=== PATIENT | male | born 1955 | race Caucasian/White ===

== ENCOUNTER 2017-11-25 10:43 | Day surgery (SDC) | payer MEDICAID ==
[~2017-11-25] VITALS: Ht 170.2 cm; Wt 127.0 kg
[~2017-11-25 10:43] MED LIST: ALEN70TA2 PO; ASPI81CH43 PO; CANA100T PO; FENO35TA2 PO; FERR1TAB5 PO; HYDR-4795 PO; LEVO25TA6 PO; LISI40TA PO; METF-370 PO; MONT10TA34 PO; OMEP20TA PO; PAR20T PO; SIMV-8 PO; SITA100T7 PO
[2017-11-25] MEDS ORDERED: VERAPAMIL 2.5MG/ML INJ 2ML VIAL IV ONE (11:14)
[2017-11-25] MEDS ORDERED: ANGIOMAX 250 MG VIAL IV ONE (11:14)
[2017-11-25] MEDS ORDERED: SODIUM CHL 0.9% 0 ML ONE (11:15)
[2017-11-25] MEDS ORDERED: fentaNYL CITRATE 100 MCG/2 ML VL ONE ×2 (11:15→11:52)
[2017-11-25] MEDS ORDERED: MIDAZOLAM HCL 1MG/1ML-2 ML VIAL ONE ×2 (11:15→11:52)
[2017-11-25] MEDS ORDERED: SODIUM CHL 0.9% 50 ML ONE (11:15)
[2017-11-25] MEDS ORDERED: IODIXANOL 320MG/ML 100ML BTL IV ONE (11:25)
[2017-11-25] MEDS ORDERED: LIDOCAINE 2% (LOCAL ANESTH.) PF 5ml SDV ONE (11:25)
[2017-11-25] MEDS ORDERED: HEPARIN SODIUM (PORCINE) 5000 UNITS/ML 1ML VIAL ONE (12:00)
== END 2017-11-25 14:00 | disposition home or self-care (01) ==
LOC: CATH 10:43
PROVIDERS: ATTEND Internal Medicine
DX: I99.8 Other disorder of circulatory system (principal); R94.39 Abnormal result of other cardiovascular function study; I10 Essential (primary) hypertension; E78.5 Hyperlipidemia, unspecified; Z87.891 Personal history of nicotine dependence; E11.9 Type 2 diabetes mellitus without complications; Z79.82 Long term (current) use of aspirin; Z79.899 Other long term (current) drug therapy; Z96.651 Presence of right artificial knee joint
CPT/HCPCS: 93458; 99152; C1769; C1887; C1894; J1644; J3010; J7030; A6257; J2001; J2250; Q9967

== ENCOUNTER 2019-05-08 04:48 | Inpatient (IN) | payer MEDICAID, OTHER ==
[~2019-05-08] VITALS: Ht 170.2 cm; Wt 129.3 kg
[~2019-05-08 04:48] MED LIST changes: -FERR1TAB5 PO; +FERR45TA7 PO
[2019-05-08] MEDS ORDERED: ASPirin 81 mg TAB PO ONE (07:00)
[2019-05-08 08:04] LABS: Basophils # (auto) 0 uL; Eosinophils # (auto) 0.1 uL; Nucleated Red Blood Cells % 0.1 %; Red Blood Cells 6.66 10^6/uL (4.5-5.90)
[2019-05-08 08:11] LABS: Basophils % (auto) 0.7 % (0.0-2.0); Eosinophils % (auto) 0.8 % (0.0-7.0); Hematocrit 47.9 % (41.0-53.0); Hemoglobin 15.2 g/dL (13.5-17.5); Lymphocytes # (auto) 1.3 uL; Lymphocytes % (auto) 18.3 % (10.0-50.0); Mean Corpuscular Hemoglobin 22.8 pg (28.0-32.0); Mean Corpuscular Hgb Conc. 31.7 g/dL (32.0-36.0); Mean Corpuscular Volume 71.9 fL (80.0-100.0); Monocytes # (auto) 0.6 uL; Monocytes % (auto) 7.9 % (0.0-12.0); Neutrophils % (auto) 72.3 % (37.0-80.0); Platelet Count (auto) 225 10^3/uL (140-450); Red Cell Distribution Width 17.4 % (11.8-14.3)
[2019-05-08 08:19] LABS: Albumin 4.2 g/dL (3.4-5.0); Anion Gap 5 (5-15); Blood Urea Nitrogen 17 mg/dL (7-18); Calcium 9.1 mg/dL (8.5-10.1); Carbon Dioxide 25 mmol/L (21-32); Chloride 103 mmol/L (98-107); Glucose 121 mg/dL (74-106); Magnesium 2.1 mg/dL (1.6-2.6); Sodium 133 mmol/L (136-145)
[2019-05-08 08:23] LABS: Alanine Aminotransferase 34 U/L (16-61); Aspartate Aminotransferase 23 U/L (15-37); BUN/Creatinine Ratio 17.7; GFR African American 102 mL/min; GFR Non-African American 84 mL/min
[2019-05-08 08:32] LABS: Alkaline Phosphatase 50 U/L (45-117); Bilirubin, Total 0.9 mg/dL (0.2-1.0); Total Protein 8.3 g/dL (6.4-8.2)
[2019-05-08 08:38] LABS: INR 1.01 (0.9-1.15)
[2019-05-08] MEDS ORDERED: DEXTROSE (50%) 50ML SYRG IV PRN (11:15)
[2019-05-08] MEDS ORDERED: MORPHINE SULF INJ 2 MG/ML SYRINGE 1ML IV PRN ×2 (11:15→11:30)
[2019-05-08] MEDS ORDERED: NITROGLYCERIN 0.4 MG SL TAB SL PRN (11:15)
[2019-05-08] MEDS ORDERED: HYDROcodone-ACET 10/325MG TAB PO PRN (11:30)
[2019-05-08] MEDS ORDERED: ONDANSETRON HCL 4 MG/2 ML VIAL IV PRN (11:30)
[2019-05-08] MEDS: InsuLIN REG 1unit/0.01ml Soln (100units/ml) SC SCH ×2 (11:30→16:57)
[2019-05-08] MEDS ORDERED: ACETAMINOPHEN 325 MG TAB PO PRN (11:30)
[2019-05-08] MEDS: ACCU-CHEK COMFORT CURVE STRIP VI SCH ×2 (11:44→16:57)
--- NOTE | 2019-05-08 15:32 | NUR ---
Telemetry admit from ER ROMULO BUTTS admitted to Telemetry unit after SBAR received. Patient oriented to ABDIRAHMAN MCFADDEN, primary RN, unit, room, bed, and unit policies regarding patient care and visiting hours. Patient now on continuous telemetry monitoring, tele box # 55 and telemetry reading on arrival to unit is . Patient placed on bedside oxygen, weighed by bed scale and encouraged to call if they need something. All questions and concerns addressed, patient verbalized understanding.
[2019-05-08] MEDS ORDERED: TAMS0.4C36 PO (16:36)
[2019-05-08] MEDS ORDERED: METF-370 PO (16:36)
[2019-05-08 17:00] VITALS: BP 122/77
[2019-05-08 17:20] VITALS: BP 122/77
--- NOTE | 2019-05-08 18:15 | NUR ---
Discharge instructions given as ordered. Encourage to follow up with PMD (Follow up with Dr. Meggan Culver MD Address: [address], [place] [address] . Follow up with Dr. Aquiles Swanson in 1-2 weeks Address : [id number], [place], [address] #[phone]) as instructed. All questions and concerns addressed. Patient verbalized understanding. Medication reconciliation form completed and copy given to patient. IV removed with catheter intact, pressure dressing applied. Telemetry unit returned to ICU. Patient taken to vehicle via wheelchair with all personal belongings, accompanied by staff and family member. No distress noted at time of departure.
[2019-05-09] MEDS ORDERED: FAMOTIDINE 20 MG TAB PO SCH (10:00)
[2019-05-09] MEDS ORDERED: ENOXAPARIN SOD 40 MG/0.4 ML SYRINGE SC SCH (10:00)
== END 2019-05-08 18:15 | disposition home or self-care (01) | DRG 313 ==
LOC: ER 04:48 → TELE 04:49 → TELE-EAST 15:20
PROVIDERS: ADMIT Internal Medicine; ATTEND Internal Medicine
DX: R07.89 Other chest pain (principal); Z68.41 Body mass index [BMI] 40.0-44.9, adult; I10 Essential (primary) hypertension; E78.5 Hyperlipidemia, unspecified; E66.01 Morbid (severe) obesity due to excess calories; E03.9 Hypothyroidism, unspecified; E11.9 Type 2 diabetes mellitus without complications; Z96.651 Presence of right artificial knee joint; Z83.3 Family history of diabetes mellitus; Z82.49 Family history of ischemic heart disease and other diseases of the circulatory system; Z79.899 Other long term (current) drug therapy; Z79.84 Long term (current) use of oral hypoglycemic drugs; Z79.82 Long term (current) use of aspirin; Z87.891 Personal history of nicotine dependence
CPT/HCPCS: 36415; 71046; 80053; 82962; 83735; 83880; 84443; 84484; 85025; 85610; 85730; 93005; 93306; G0378

== ENCOUNTER 2022-04-09 07:48 | Inpatient (IN) | payer OTHER ==
[~2022-04-09] VITALS: Ht 167.6 cm; Wt 112.2 kg
[~2022-04-09 07:48] MED LIST changes: -LISI40TA PO; +LISI40TA11 PO; +MONT-8 PO; -MONT10TA34 PO; +TAMS0.4C36 PO
[2022-04-09 08:15] LABS: Basophils # (auto) 0 10 ^3/uL (0-0.2); Eosinophils # (auto) 0.1 10 ^3/uL (0-0.8); Hemoglobin 19.4 g/dL (13.5-17.5); Mean Corpuscular Volume 89.8 fL (80.0-100.0)
[2022-04-09 08:17] LABS: Basophils % (auto) 0.7 % (0.0-2.0); Eosinophils % (auto) 1.5 % (0.0-7.0); Lymphocytes # (auto) 1.3 10 ^3/uL (0.4-5.4); Mean Corpuscular Hemoglobin 29.3 pg (28.0-32.0); Mean Corpuscular Hgb Conc. 32.6 g/dL (32.0-36.0); Monocytes # (auto) 0.5 10 ^3/uL (0-1.3); Monocytes % (auto) 9.7 % (0.0-12.0); Neutrophils # (auto) 3.3 10 ^3/uL (1.6-8.6); Neutrophils % (auto) 63.1 % (37.0-80.0); Nucleated Red Blood Cells % 0.5 %; Red Blood Cells 6.63 10^6/uL (4.5-5.90); Red Cell Distribution Width 14.4 % (11.8-14.3); White Blood Cell 5.3 10^3/uL (4.4-10.8)
[2022-04-09 08:36] LABS: INR 1.03 (0.9-1.15); Partial Thromboplastin Time 30.8 sec (24.6-33.4)
[2022-04-09 08:37] LABS: Potassium 4.8 mmol/L (3.5-5.1)
[2022-04-09 08:44] LABS: Albumin 4.3 g/dL (3.4-5.0); Bilirubin, Total 0.9 mg/dL (0.2-1.0); Calcium 9.1 mg/dL (8.5-10.1); Total Protein 7.1 g/dL (6.4-8.2)
[2022-04-09 08:49] LABS: Hematocrit 59.6 % (41.0-53.0)
[2022-04-09] MEDS ORDERED: IOHEXOL 300 MG/ML 100ML BOTTLE IJ ONE (09:05)
[2022-04-09 09:19] LABS: Urine Bacteria NONE SEEN /hpf (None Seen); Urine Blood 3+ /uL (Negative); Urine Specific Gravity 1.019 (1.001-1.035); Urine WBC 332 /hpf (0 - 3)
[2022-04-09] MEDS ORDERED: cefTRIAXone 1GM/50ML D5W 50 ML IV ONE (10:45)
[2022-04-09] MEDS ORDERED: ACETAMINOPHEN 325 MG TAB PO PRN (13:00)
[2022-04-09] MEDS ORDERED: MORPHINE SULFATE INJ 2 MG/ml SYRG IV PRN (13:00)
[2022-04-09] MEDS ORDERED: ONDANSETRON HCL 4 MG/2 ML VIAL IV PRN (13:00)
[2022-04-09] MEDS: SODIUM CHLORIDE 0.9% 1,000 ML IV SCH (17:12)
[2022-04-09] MEDS: HYDROcodone-ACET 5/325MG TAB PO PRN ×2 (17:12→22:00)
[2022-04-09 22:46] VITALS: BP 125/85
[2022-04-09 23:05] VITALS: BP 125/85
[2022-04-10] MEDS: SODIUM CHLORIDE 0.9% 1,000 ML IV SCH ×3 (00:30→19:00)
[2022-04-10 05:00] VITALS: BP 114/73
[2022-04-10 06:32] LABS: Basophils # (auto) 0 10 ^3/uL (0-0.2); Basophils % (auto) 0.6 % (0.0-2.0); Eosinophils # (auto) 0.1 10 ^3/uL (0-0.8); Eosinophils % (auto) 2.2 % (0.0-7.0); Hematocrit 55.8 % (41.0-53.0); Hemoglobin 18.7 g/dL (13.5-17.5); Lymphocytes # (auto) 1.2 10 ^3/uL (0.4-5.4); Lymphocytes % (auto) 22.5 % (10.0-50.0); Mean Corpuscular Hgb Conc. 33.5 g/dL (32.0-36.0); Mean Corpuscular Volume 89.4 fL (80.0-100.0); Monocytes # (auto) 0.5 10 ^3/uL (0-1.3); Neutrophils # (auto) 3.4 10 ^3/uL (1.6-8.6); Neutrophils % (auto) 65.7 % (37.0-80.0); Nucleated Red Blood Cells % 0.6 %; Red Blood Cells 6.24 10^6/uL (4.5-5.90); Red Cell Distribution Width 14.5 % (11.8-14.3); White Blood Cell 5.1 10^3/uL (4.4-10.8)
[2022-04-10 08:48] VITALS: BP 112/77
[2022-04-10] MEDS: cefTRIAXone 1GM/50ML D5W 50 ML IV SCH (09:03)
[2022-04-10 13:00] VITALS: BP 133/90
[2022-04-10 16:32] VITALS: BP 121/74
[2022-04-10 22:00] VITALS: BP 102/65
[2022-04-11] MEDS: SODIUM CHLORIDE 0.9% 1,000 ML IV SCH ×3 (00:30→19:00)
[2022-04-11 05:00] VITALS: BP 115/70
[2022-04-11 06:22] LABS: Basophils # (auto) 0 10 ^3/uL (0-0.2); Eosinophils # (auto) 0.1 10 ^3/uL (0-0.8); Lymphocytes # (auto) 1.1 10 ^3/uL (0.4-5.4); Monocytes # (auto) 0.4 10 ^3/uL (0-1.3)
[2022-04-11 06:26] LABS: Basophils % (auto) 0.5 % (0.0-2.0); Hematocrit 55.8 % (41.0-53.0); Hemoglobin 18.7 g/dL (13.5-17.5); Lymphocytes % (auto) 22.7 % (10.0-50.0); Mean Corpuscular Hemoglobin 29.8 pg (28.0-32.0); Mean Corpuscular Hgb Conc. 33.5 g/dL (32.0-36.0); Mean Corpuscular Volume 88.9 fL (80.0-100.0); Monocytes % (auto) 8.3 % (0.0-12.0); Neutrophils # (auto) 3.2 10 ^3/uL (1.6-8.6); Neutrophils % (auto) 66.5 % (37.0-80.0); Nucleated Red Blood Cells % 0.7 %; Red Blood Cells 6.27 10^6/uL (4.5-5.90); Red Cell Distribution Width 14.2 % (11.8-14.3); White Blood Cell 4.8 10^3/uL (4.4-10.8)
[2022-04-11 06:27] LABS: BUN/Creatinine Ratio 27.7; Calcium 9.1 mg/dL (8.5-10.1); Potassium 4.6 mmol/L (3.5-5.1)
[2022-04-11 06:28] LABS: INR 0.99 (0.9-1.15); Partial Thromboplastin Time 29.8 sec (24.6-33.4)
[2022-04-11] MEDS: cefTRIAXone 1GM/50ML D5W 50 ML IV SCH (08:40)
[2022-04-11 09:08] VITALS: BP 106/75
[2022-04-11] MEDS ORDERED: CHOL20007 OR (10:14)
[2022-04-11] MEDS ORDERED: ERTU15TA PO (10:14)
[2022-04-11 12:38] VITALS: BP 146/93
[2022-04-11] MEDS ORDERED: TAMSULOSIN HYDROCHLORIDE 0.4 MG CAP PO ONE (13:30)
[2022-04-11 16:45] VITALS: BP 133/88
[2022-04-11 22:04] VITALS: BP 119/79
[2022-04-12] MEDS: SODIUM CHLORIDE 0.9% 1,000 ML IV SCH ×4 (00:33→23:55)
[2022-04-12] MEDS: HYDROcodone-ACET 5/325MG TAB PO PRN ×2 (01:57→18:27)
[2022-04-12 05:00] VITALS: BP 107/65
[2022-04-12 08:53] VITALS: BP 116/65
[2022-04-12] MEDS: cefTRIAXone 1GM/50ML D5W 50 ML IV SCH (09:40)
[2022-04-12] MEDS ORDERED: BUPIVACAINE 0.5% P/F INJ 10 ML VIAL ONE (11:39)
[2022-04-12] MEDS ORDERED: PROPOFOL 10 MG/ML 20 ML IV ONE (12:16)
[2022-04-12] MEDS ORDERED: fentaNYL CITRATE 100 MCG/2 ML VL ONE (12:16)
[2022-04-12] MEDS ORDERED: SODIUM CHLORIDE LOCK 10 ML ONE (12:16)
[2022-04-12] MEDS ORDERED: MIDAZOLAM HCL 2MG/2ML 2ml VIAL (1mg/ml) ONE (12:16)
[2022-04-12] MEDS ORDERED: ONDANSETRON HCL 4 MG/2 ML VIAL ONE (12:16)
[2022-04-12] MEDS ORDERED: MORPHINE SULFATE INJ 2 MG/ml SYRG IV PRN (12:30)
[2022-04-12] MEDS ORDERED: METOCLOPRAMIDE HCL 5MG/ml INJ 2ml VIAL IV PRN (12:30)
[2022-04-12] MEDS ORDERED: HYDROmorphone HCL 2 MG/ML VL/or syr IV PRN ×2 (12:30)
[2022-04-12] MEDS ORDERED: ACCU-CHEK COMFORT CURVE STRIP VI ONE (12:30)
[2022-04-12 12:37] VITALS: BP 134/84
[2022-04-12] MEDS ORDERED: CIPROFLOXACIN 400MG/200ML 200 ML IV ONE (13:09)
[2022-04-12] MEDS ORDERED: BELLADONNA ALKAL/OPIUM (16.2/30MG) RECT SUPP PR ONE (14:45)
[2022-04-12 17:15] VITALS: BP 104/65
[2022-04-12] MEDS ORDERED: TAMSULOSIN HYDROCHLORIDE 0.4 MG CAP PO SCH (18:00)
[2022-04-12] MEDS ORDERED: LORazepam 2MG/ML-1ML VIAL IV ONE (20:00)
[2022-04-12 22:00] VITALS: BP 128/69
[2022-04-12] MEDS ORDERED: MELATONIN 5 MG TAB PO SCH (22:00)
[2022-04-13] MEDS: HYDROcodone-ACET 5/325MG TAB PO PRN (04:37)
[2022-04-13 05:00] VITALS: BP 138/85
[2022-04-13 08:39] VITALS: BP 121/85
[2022-04-13] MEDS: SODIUM CHLORIDE 0.9% 1,000 ML IV SCH (08:43)
[2022-04-13] MEDS: cefTRIAXone 1GM/50ML D5W 50 ML IV SCH (08:43)
[2022-04-13 12:43] VITALS: BP 130/81
[2022-04-13] MEDS ORDERED: HYDR-4902 PO (12:48)
[2022-04-13] MEDS ORDERED: CEPH-510 PO (12:48)
[2022-04-13 14:16] VITALS: BP 130/81
== END 2022-04-13 15:00 | disposition home or self-care (01) | DRG 669 ==
LOC: ER 07:48 → OVERFLOW 12:52 → WEST WING 22:18
PROVIDERS: ADMIT Internal Medicine; ATTEND Internal Medicine
PROC: 0TCC8ZZ Extirpation of Matter from Bladder Neck, Via Natural or Artificial Opening Endoscopic (ICD-10-PCS; principal; 2022-04-12 13:22)
PROC: 0TBC8ZZ Excision of Bladder Neck, Via Natural or Artificial Opening Endoscopic (ICD-10-PCS; 2022-04-12 13:22)
DX: D49.4 Neoplasm of unspecified behavior of bladder (principal); E66.2 Morbid (severe) obesity with alveolar hypoventilation; Z68.41 Body mass index [BMI] 40.0-44.9, adult; R31.0 Gross hematuria; E03.9 Hypothyroidism, unspecified; E11.9 Type 2 diabetes mellitus without complications; E78.5 Hyperlipidemia, unspecified; Z20.822 Contact with and (suspected) exposure to COVID-19; I10 Essential (primary) hypertension; Z82.49 Family history of ischemic heart disease and other diseases of the circulatory system; Z83.3 Family history of diabetes mellitus; Z79.899 Other long term (current) drug therapy; Z79.84 Long term (current) use of oral hypoglycemic drugs
CPT/HCPCS: 36415; 71045; 74177; 80048; 80053; 81001; 85025; 85610; 85730; 86850; 86900; 86901; 87086; 87426; 93005; 96365; 96366; G0378; J0696; J2250; J2405; J2704; J3490

== ENCOUNTER 2022-04-15 06:41 | Inpatient (IN) | payer OTHER ==
[~2022-04-15] VITALS: Ht 167.6 cm; Wt 112.8 kg
[~2022-04-15 06:41] MED LIST changes: -ALEN70TA2 PO; -CANA100T PO; +CEPH-510 PO; +CHOL20007 OR; +ERTU15TA PO; -FENO35TA2 PO; -HYDR-4795 PO; +HYDR-4902 PO; -SITA100T7 PO
[2022-04-15 07:37] LABS: Basophils # (auto) 0 10 ^3/uL (0-0.2); Eosinophils # (auto) 0.1 10 ^3/uL (0-0.8); Hemoglobin 18.1 g/dL (13.5-17.5); Lymphocytes # (auto) 1.4 10 ^3/uL (0.4-5.4); Monocytes # (auto) 0.4 10 ^3/uL (0-1.3); Red Cell Distribution Width 14.4 % (11.8-14.3)
[2022-04-15 07:39] LABS: Basophils % (auto) 0.5 % (0.0-2.0); Eosinophils % (auto) 1.5 % (0.0-7.0); Hematocrit 53.5 % (41.0-53.0); Lymphocytes % (auto) 25.5 % (10.0-50.0); Mean Corpuscular Hgb Conc. 33.8 g/dL (32.0-36.0); Mean Corpuscular Volume 88.9 fL (80.0-100.0); Monocytes % (auto) 8.2 % (0.0-12.0); Neutrophils # (auto) 3.5 10 ^3/uL (1.6-8.6); Neutrophils % (auto) 64.3 % (37.0-80.0); Nucleated Red Blood Cells % 1.8 %; Red Blood Cells 6.02 10^6/uL (4.5-5.90); White Blood Cell 5.4 10^3/uL (4.4-10.8)
[2022-04-15 07:50] LABS: Calcium 9.1 mg/dL (8.5-10.1); Potassium 4.7 mmol/L (3.5-5.1)
[2022-04-15 07:54] LABS: BUN/Creatinine Ratio 19.8; Bilirubin, Total 0.7 mg/dL (0.2-1.0)
[2022-04-15 10:17] LABS: Urine Bacteria NONE SEEN /hpf (None Seen); Urine Blood 3+ /uL (Negative); Urine WBC 34 /hpf (0 - 3)
[2022-04-15] MEDS ORDERED: HYDROcodone-ACET 5/325MG TAB PO ONE (10:30)
[2022-04-15] MEDS ORDERED: HYDROmorphone HCL 2 MG/ML VL/or syr IV ONE (10:45)
[2022-04-15] MEDS ORDERED: LIDOCAINE 2% JELLY 11ml (GLYDO) UR ONE (10:45)
[2022-04-15] MEDS ORDERED: ONDANSETRON HCL 4 MG/2 ML VIAL IV ONE (10:45)
[2022-04-15] MEDS ORDERED: SODIUM CHL 0.9% IV ONE (13:00)
[2022-04-15] MEDS ORDERED: AMINOCAPROIC ACID IV ONE (13:00)
[2022-04-15] MEDS ORDERED: AMINOCAPROIC ACID IV SCH (14:00)
[2022-04-15] MEDS ORDERED: SODIUM CHL 0.9% IV SCH (14:00)
[2022-04-15] MEDS ORDERED: SODIUM CHLORIDE 0.9% 1,000 ML IV ONE (14:15)
[2022-04-15 15:05] LABS: Basophils # (auto) 0 10 ^3/uL (0-0.2); Basophils % (auto) 0.2 % (0.0-2.0); Eosinophils # (auto) 0 10 ^3/uL (0-0.8); Hematocrit 49.8 % (41.0-53.0); Hemoglobin 16.7 g/dL (13.5-17.5); Lymphocytes # (auto) 1.4 10 ^3/uL (0.4-5.4); Lymphocytes % (auto) 10.9 % (10.0-50.0); Mean Corpuscular Hemoglobin 29.9 pg (28.0-32.0); Mean Corpuscular Hgb Conc. 33.5 g/dL (32.0-36.0); Mean Corpuscular Volume 89.2 fL (80.0-100.0); Monocytes # (auto) 0.6 10 ^3/uL (0-1.3); Monocytes % (auto) 5.1 % (0.0-12.0); Neutrophils # (auto) 10.6 10 ^3/uL (1.6-8.6); Neutrophils % (auto) 83.8 % (37.0-80.0); Nucleated Red Blood Cells % 0.9 %; Red Blood Cells 5.58 10^6/uL (4.5-5.90); Red Cell Distribution Width 14.1 % (11.8-14.3); White Blood Cell 12.6 10^3/uL (4.4-10.8)
[2022-04-15] MEDS ORDERED: DEXTROSE (50%) 50ML SYRG IV PRN (16:30)
[2022-04-15] MEDS ORDERED: NITROGLYCERIN 0.4 MG SL TAB SL PRN (17:30)
[2022-04-15] MEDS ORDERED: MORPHINE SULFATE INJ 2 MG/ml SYRG IV PRN (17:30)
[2022-04-15] MEDS: ACCU-CHEK COMFORT CURVE STRIP VI SCH (18:25)
[2022-04-15] MEDS: InsuLIN REG 1unit/0.01ml Soln (100units/ml) SC SCH (18:27)
[2022-04-15] MEDS ORDERED: HYDROcodone-ACET 5/325MG TAB PO PRN (20:15)
[2022-04-15] MEDS ORDERED: ONDANSETRON HCL 4 MG/2 ML VIAL IV PRN (20:15)
[2022-04-15] MEDS: MORPHINE SULFATE INJ 2 MG/ml SYRG IV PRN (20:34)
[2022-04-15 22:15] LABS: Basophils # (auto) 0 10 ^3/uL (0-0.2); Basophils % (auto) 0.5 % (0.0-2.0); Eosinophils # (auto) 0.1 10 ^3/uL (0-0.8); Eosinophils % (auto) 0.7 % (0.0-7.0); Hematocrit 49.1 % (41.0-53.0); Hemoglobin 16.5 g/dL (13.5-17.5); Lymphocytes # (auto) 1.7 10 ^3/uL (0.4-5.4); Lymphocytes % (auto) 18.3 % (10.0-50.0); Mean Corpuscular Hemoglobin 30.1 pg (28.0-32.0); Mean Corpuscular Hgb Conc. 33.6 g/dL (32.0-36.0); Mean Corpuscular Volume 89.6 fL (80.0-100.0); Monocytes # (auto) 0.8 10 ^3/uL (0-1.3); Monocytes % (auto) 8.4 % (0.0-12.0); Neutrophils # (auto) 6.6 10 ^3/uL (1.6-8.6); Neutrophils % (auto) 72.1 % (37.0-80.0); Nucleated Red Blood Cells % 0.2 %; Red Blood Cells 5.47 10^6/uL (4.5-5.90); Red Cell Distribution Width 14.5 % (11.8-14.3); White Blood Cell 9.2 10^3/uL (4.4-10.8)
[2022-04-15 23:54] VITALS: BP 127/71
[2022-04-16] MEDS: ACCU-CHEK COMFORT CURVE STRIP VI SCH ×5 (00:08→23:32)
[2022-04-16 00:17] VITALS: BP 127/71
[2022-04-16] MEDS ORDERED: LEV25T PO (01:01)
[2022-04-16] MEDS ORDERED: METF-372 PO (01:01)
[2022-04-16] MEDS ORDERED: IBUP800T26 PO (01:01)
[2022-04-16] MEDS ORDERED: CEPH500C PO (01:01)
[2022-04-16] MEDS ORDERED: TAMS1CAP25 PO (01:01)
[2022-04-16] MEDS ORDERED: PARO1TAB33 PO (01:01)
[2022-04-16 05:00] VITALS: BP 124/67
[2022-04-16] MEDS: InsuLIN REG 1unit/0.01ml Soln (100units/ml) SC SCH ×5 (06:00→23:34)
[2022-04-16] MEDS: MORPHINE SULFATE INJ 2 MG/ml SYRG IV PRN (06:06)
[2022-04-16 06:17] LABS: Basophils # (auto) 0 10 ^3/uL (0-0.2); Basophils % (auto) 0.2 % (0.0-2.0); Eosinophils # (auto) 0.1 10 ^3/uL (0-0.8); Eosinophils % (auto) 0.9 % (0.0-7.0); Hematocrit 47.8 % (41.0-53.0); Hemoglobin 16.1 g/dL (13.5-17.5); Lymphocytes # (auto) 1.7 10 ^3/uL (0.4-5.4); Lymphocytes % (auto) 18.6 % (10.0-50.0); Mean Corpuscular Hemoglobin 30.1 pg (28.0-32.0); Mean Corpuscular Hgb Conc. 33.7 g/dL (32.0-36.0); Mean Corpuscular Volume 89.4 fL (80.0-100.0); Monocytes # (auto) 0.7 10 ^3/uL (0-1.3); Monocytes % (auto) 8.1 % (0.0-12.0); Neutrophils # (auto) 6.5 10 ^3/uL (1.6-8.6); Neutrophils % (auto) 72.2 % (37.0-80.0); Red Blood Cells 5.34 10^6/uL (4.5-5.90); Red Cell Distribution Width 14.4 % (11.8-14.3)
[2022-04-16 06:44] LABS: Potassium 4.6 mmol/L (3.5-5.1)
[2022-04-16 06:46] LABS: BUN/Creatinine Ratio 22.4
[2022-04-16 09:00] VITALS: BP 131/65
[2022-04-16] MEDS: ATORVASTATIN 20 MG TAB PO SCH (09:21)
[2022-04-16] MEDS: PARoxetine 20 MG TAB PO SCH (09:22)
[2022-04-16] MEDS: MONTELUKAST SODIUM 10 MG TAB PO SCH (09:24)
[2022-04-16] MEDS: LISINOPRIL 20 MG TAB PO SCH (09:24)
[2022-04-16] MEDS: LEVOTHYROXINE SODIUM 25 MCG TAB PO SCH (09:24)
[2022-04-16] MEDS: PANTOPRAZOLE 40 MG TAB PO SCH (09:25)
[2022-04-16] MEDS: cefTRIAXone 1GM/50ML D5W 50 ML IV SCH (09:26)
[2022-04-16] MEDS ORDERED: mitoMYcin 40 MG in STERILE WATER 60 ML IS ONE (12:30)
[2022-04-16] MEDS ORDERED: DexAMETHasone SOD PHOS 10MG/1ML VIAL INJ ONE (12:31)
[2022-04-16] MEDS ORDERED: KETOROLAC TROMETH 30 MG/ML 1ML VIAL ONE (12:31)
[2022-04-16] MEDS ORDERED: GLYCOPYRROLATE 0.2 MG/ML 1ML VIAL ONE (12:31)
[2022-04-16] MEDS ORDERED: PROPOFOL 10 MG/ML 20 ML IV ONE ×2 (12:31→14:07)
[2022-04-16] MEDS ORDERED: ONDANSETRON HCL 4 MG/2 ML VIAL ONE (12:31)
[2022-04-16] MEDS ORDERED: LIDOCAINE 2% JELLY 11ml (GLYDO) ONE (12:35)
[2022-04-16 13:00] VITALS: BP 125/72
[2022-04-16] MEDS ORDERED: CIPROFLOXACIN 400MG/200ML 200 ML IV ONE (13:47)
[2022-04-16] MEDS ORDERED: SODIUM CHLORIDE LOCK 10 ML ONE ×2 (14:13→14:22)
[2022-04-16] MEDS ORDERED: PHENYLEPHRINE HCL 10 MG/ML VL ONE (14:13)
[2022-04-16] MEDS ORDERED: fentaNYL CITRATE 100 MCG/2 ML VL ONE (14:21)
[2022-04-16] MEDS ORDERED: ePHEDrine SULFATE 50 MG/ML AMP ONE (14:22)
[2022-04-16 22:00] VITALS: BP 111/72
[2022-04-16] MEDS: MELATONIN 5 MG TAB PO PRN (23:34)
[2022-04-16 23:52] LABS: Basophils # (auto) 0 10 ^3/uL (0-0.2); Basophils % (auto) 0.1 % (0.0-2.0); Eosinophils # (auto) 0 10 ^3/uL (0-0.8); Hematocrit 48.4 % (41.0-53.0); Hemoglobin 16.2 g/dL (13.5-17.5); Lymphocytes # (auto) 0.7 10 ^3/uL (0.4-5.4); Lymphocytes % (auto) 8.6 % (10.0-50.0); Mean Corpuscular Hgb Conc. 33.4 g/dL (32.0-36.0); Mean Corpuscular Volume 89.8 fL (80.0-100.0); Monocytes # (auto) 0.3 10 ^3/uL (0-1.3); Monocytes % (auto) 3.7 % (0.0-12.0); Neutrophils # (auto) 6.9 10 ^3/uL (1.6-8.6); Neutrophils % (auto) 87.6 % (37.0-80.0); Red Blood Cells 5.39 10^6/uL (4.5-5.90); Red Cell Distribution Width 14.5 % (11.8-14.3); White Blood Cell 7.9 10^3/uL (4.4-10.8)
[2022-04-17 05:00] VITALS: BP 118/70
[2022-04-17] MEDS: ACCU-CHEK COMFORT CURVE STRIP VI SCH ×3 (05:51→18:05)
[2022-04-17] MEDS: InsuLIN REG 1unit/0.01ml Soln (100units/ml) SC SCH ×3 (05:51→18:07)
[2022-04-17 09:00] VITALS: BP 110/74
[2022-04-17] MEDS: cefTRIAXone 1GM/50ML D5W 50 ML IV SCH (09:13)
[2022-04-17] MEDS: PANTOPRAZOLE 40 MG TAB PO SCH (09:13)
[2022-04-17] MEDS: MONTELUKAST SODIUM 10 MG TAB PO SCH (09:13)
[2022-04-17] MEDS: LISINOPRIL 20 MG TAB PO SCH (09:14)
[2022-04-17] MEDS: ATORVASTATIN 20 MG TAB PO SCH (09:14)
[2022-04-17] MEDS: LEVOTHYROXINE SODIUM 25 MCG TAB PO SCH (09:14)
[2022-04-17] MEDS: BELLADONNA ALKAL/OPIUM (16.2/30MG) RECT SUPP PR SCH (09:15)
[2022-04-17] MEDS: PARoxetine 20 MG TAB PO SCH (09:15)
[2022-04-17 10:29] LABS: Basophils # (auto) 0.1 10 ^3/uL (0-0.2); Basophils % (auto) 0.7 % (0.0-2.0); Eosinophils # (auto) 0 10 ^3/uL (0-0.8); Eosinophils % (auto) 0.5 % (0.0-7.0); Hematocrit 47.4 % (41.0-53.0); Hemoglobin 15.9 g/dL (13.5-17.5); Lymphocytes # (auto) 1.9 10 ^3/uL (0.4-5.4); Lymphocytes % (auto) 20.5 % (10.0-50.0); Mean Corpuscular Hgb Conc. 33.5 g/dL (32.0-36.0); Mean Corpuscular Volume 89.6 fL (80.0-100.0); Monocytes # (auto) 0.7 10 ^3/uL (0-1.3); Monocytes % (auto) 7.1 % (0.0-12.0); Neutrophils # (auto) 6.6 10 ^3/uL (1.6-8.6); Neutrophils % (auto) 71.2 % (37.0-80.0); Nucleated Red Blood Cells % 0.2 %; Red Blood Cells 5.29 10^6/uL (4.5-5.90); Red Cell Distribution Width 14.3 % (11.8-14.3); White Blood Cell 9.3 10^3/uL (4.4-10.8)
[2022-04-17 13:00] VITALS: BP 109/65
[2022-04-17] MEDS ORDERED: CEPH500C PO (14:39)
[2022-04-17 17:00] VITALS: BP 115/79
[2022-04-17] MEDS ORDERED: SODIUM CHLORIDE 0.9% 1,000 ML IV ONE (18:00)
[2022-04-17 22:00] VITALS: BP 117/79
[2022-04-17] MEDS: MELATONIN 5 MG TAB PO PRN (22:34)
[2022-04-18] MEDS: InsuLIN REG 1unit/0.01ml Soln (100units/ml) SC SCH ×5 (00:02→23:56)
[2022-04-18 05:00] VITALS: BP 131/70
[2022-04-18] MEDS: ACCU-CHEK COMFORT CURVE STRIP VI SCH ×5 (05:55→23:55)
[2022-04-18 09:00] VITALS: BP 136/77
[2022-04-18] MEDS: cefTRIAXone 1GM/50ML D5W 50 ML IV SCH (09:50)
[2022-04-18] MEDS: LEVOTHYROXINE SODIUM 25 MCG TAB PO SCH (09:54)
[2022-04-18] MEDS: ATORVASTATIN 20 MG TAB PO SCH (09:54)
[2022-04-18] MEDS: PANTOPRAZOLE 40 MG TAB PO SCH (09:55)
[2022-04-18] MEDS: MONTELUKAST SODIUM 10 MG TAB PO SCH (09:55)
[2022-04-18] MEDS: PARoxetine 20 MG TAB PO SCH (09:59)
[2022-04-18] MEDS: LISINOPRIL 20 MG TAB PO SCH (10:00)
[2022-04-18] MEDS: BELLADONNA ALKAL/OPIUM (16.2/30MG) RECT SUPP PR SCH (10:00)
[2022-04-18 12:57] VITALS: BP 141/82
[2022-04-18] MEDS ORDERED: POLYETHYLENE GLYCOL 17 GM PWDR PO PRN (15:15)
[2022-04-18 17:00] VITALS: BP 155/72
[2022-04-18] MEDS: MELATONIN 5 MG TAB PO PRN (21:00)
[2022-04-18 22:00] VITALS: BP 116/69
[2022-04-19 04:56] VITALS: BP 115/71
[2022-04-19] MEDS: ACCU-CHEK COMFORT CURVE STRIP VI SCH (06:06)
[2022-04-19] MEDS: InsuLIN REG 1unit/0.01ml Soln (100units/ml) SC SCH (06:12)
[2022-04-19 09:00] VITALS: BP 119/67
[2022-04-19] MEDS: cefTRIAXone 1GM/50ML D5W 50 ML IV SCH (09:18)
[2022-04-19] MEDS: LISINOPRIL 20 MG TAB PO SCH (09:18)
[2022-04-19] MEDS: PARoxetine 20 MG TAB PO SCH (09:19)
[2022-04-19] MEDS: ATORVASTATIN 20 MG TAB PO SCH (09:20)
[2022-04-19] MEDS: PANTOPRAZOLE 40 MG TAB PO SCH (09:20)
[2022-04-19] MEDS: BELLADONNA ALKAL/OPIUM (16.2/30MG) RECT SUPP PR SCH (09:20)
[2022-04-19] MEDS: LEVOTHYROXINE SODIUM 25 MCG TAB PO SCH (09:20)
[2022-04-19] MEDS: MONTELUKAST SODIUM 10 MG TAB PO SCH (09:20)
== END 2022-04-19 13:30 | disposition home or self-care (01) | DRG 667 ==
LOC: ER 06:41 → TELE 17:31 → TELE-WESTW 23:01
PROVIDERS: ADMIT Internal Medicine; ATTEND Internal Medicine
PROC: 0T5B8ZZ Destruction of Bladder, Via Natural or Artificial Opening Endoscopic (ICD-10-PCS; 2022-04-16)
PROC: 3E0K805 Introduction of Other Antineoplastic into Genitourinary Tract, Via Natural or Artificial Opening Endoscopic (ICD-10-PCS; 2022-04-16)
PROC: 0TCB8ZZ Extirpation of Matter from Bladder, Via Natural or Artificial Opening Endoscopic (ICD-10-PCS; principal; 2022-04-16 13:58)
PROC: 0VB08ZZ Excision of Prostate, Via Natural or Artificial Opening Endoscopic (ICD-10-PCS; 2022-04-16 13:58)
PROC: 0TBC8ZZ Excision of Bladder Neck, Via Natural or Artificial Opening Endoscopic (ICD-10-PCS; 2022-04-16 13:58)
DX: D49.4 Neoplasm of unspecified behavior of bladder (principal); R31.0 Gross hematuria; E03.9 Hypothyroidism, unspecified; E78.5 Hyperlipidemia, unspecified; F32.A Depression, unspecified; I10 Essential (primary) hypertension; K21.9 Gastro-esophageal reflux disease without esophagitis; R33.9 Retention of urine, unspecified; N40.1 Benign prostatic hyperplasia with lower urinary tract symptoms; R33.8 Other retention of urine; E11.9 Type 2 diabetes mellitus without complications; I95.9 Hypotension, unspecified; R00.1 Bradycardia, unspecified; Z20.822 Contact with and (suspected) exposure to COVID-19; Z82.49 Family history of ischemic heart disease and other diseases of the circulatory system; Z83.3 Family history of diabetes mellitus; Z85.50 Personal history of malignant neoplasm of unspecified urinary tract organ; Z87.442 Personal history of urinary calculi; Z79.899 Other long term (current) drug therapy; Z85.51 Personal history of malignant neoplasm of bladder
CPT/HCPCS: 36415; 80048; 80053; 81001; 82962; 85025; 86850; 86900; 86901; 87081; 87426; 93005; 96361; 96365; 96375; G0378; J0696; J1100; J1815; J1885; J2405; J2704; J9280

== ENCOUNTER → 2022-10-26 | Day surgery (SDC) | payer OTHER ==
[~2022-10-26] VITALS: Ht 170.2 cm; Wt 113.4 kg
[~2022-10-26] MED LIST changes: -ASPI81CH43 PO; +ASPI81CH59 PO; -CEPH-510 PO; -CHOL20007 OR; +CHOLTAB12 PO; -FERR45TA7 PO; -HYDR-4902 PO; +HYDROmorphone HCL 2 MG/ML VL/or syr IV PRN; +LEV25T PO; -LEVO25TA6 PO; +LIDOCAINE 2% (LOCAL ANESTH.) PF 5ml SDV ONE; -LISI40TA11 PO; -METF-370 PO; +METF-372 PO; +MIDAZOLAM HCL 2MG/2ML 2ml VIAL (1mg/ml) ONE; +ONDANSETRON HCL 4 MG/2 ML VIAL IV PRN; +ONDANSETRON HCL 4 MG/2 ML VIAL ONE; -PAR20T PO; +PARO1TAB33 PO; +PROPOFOL 10 MG/ML 20 ML IV ONE; -SIMV-8 PO; +SIMV20TA20 PO; -TAMS0.4C36 PO; +TAMS1CAP25 PO; +TEST200I32 IJ; +ceFAZolin 1GM/50ML 100 ML IV ONE; +fentaNYL CITRATE 100 MCG/2 ML VL ONE
[2022-10-26 09:09] VITALS: TEMP 98.4
[2022-10-26 09:45] VITALS: BP 113/62; PULSE 57; RESP 12; O2SAT 96
== END | disposition home or self-care (01) ==
LOC: SUR 06:25
PROVIDERS: ATTEND Urology
DX: N20.0 Calculus of kidney (principal); Z85.51 Personal history of malignant neoplasm of bladder; E11.9 Type 2 diabetes mellitus without complications; Z79.84 Long term (current) use of oral hypoglycemic drugs
CPT/HCPCS: 50590; 82962; J0690; J2001; J2250; J2405; J2704; J3010; J7030

== ENCOUNTER 2023-07-05 17:08 | Inpatient (IN) | payer OTHER ==
[~2023-07-05] VITALS: Ht 170.2 cm; Wt 110.8 kg
[~2023-07-05 17:08] MED LIST changes: -HYDROmorphone HCL 2 MG/ML VL/or syr IV PRN; -LIDOCAINE 2% (LOCAL ANESTH.) PF 5ml SDV ONE; -MIDAZOLAM HCL 2MG/2ML 2ml VIAL (1mg/ml) ONE; -ONDANSETRON HCL 4 MG/2 ML VIAL IV PRN; -ONDANSETRON HCL 4 MG/2 ML VIAL ONE; -PROPOFOL 10 MG/ML 20 ML IV ONE; -ceFAZolin 1GM/50ML 100 ML IV ONE; -fentaNYL CITRATE 100 MCG/2 ML VL ONE
[2023-07-05 19:05] LABS: Eosinophils # (auto) 0 10 ^3/uL (0-0.8); Eosinophils % (auto) 0.1 % (0.0-7.0); Hemoglobin 14.1 g/dL (13.5-17.5); Lymphocytes # (auto) 1.5 10 ^3/uL (0.4-5.4); Neutrophils # (auto) 14.3 10 ^3/uL (1.6-8.6)
[2023-07-05 19:07] LABS: Basophils # (auto) 0 10 ^3/uL (0-0.2); Basophils % (auto) 0.3 % (0.0-2.0); Hematocrit 45.6 % (41.0-53.0); Lymphocytes % (auto) 8.4 % (10.0-50.0); Mean Corpuscular Hemoglobin 22.5 pg (28.0-32.0); Mean Corpuscular Volume 72.5 fL (80.0-100.0); Monocytes # (auto) 1.7 10 ^3/uL (0-1.3); Monocytes % (auto) 9.6 % (0.0-12.0); Neutrophils % (auto) 81.6 % (37.0-80.0); Red Blood Cells 6.29 10^6/uL (4.5-5.90); Red Cell Distribution Width 18.8 % (11.8-14.3); White Blood Cell 17.5 10^3/uL (4.4-10.8)
[2023-07-05 19:14] LABS: Chloride 102 mmol/L (98-107); Potassium 4.3 mmol/L (3.5-5.1); Sodium 135 mmol/L (136-145)
[2023-07-05 19:15] LABS: Anion Gap 8 (5-15); Carbon Dioxide 25 mmol/L (20-30)
[2023-07-05 19:16] LABS: Calcium 10.4 mg/dL (8.7-10.4)
[2023-07-05 19:20] LABS: BUN/Creatinine Ratio 17.2 (10.0-20.0); Blood Urea Nitrogen 16 mg/dL (9-23); Glucose 145 mg/dL (74-106)
[2023-07-05 19:21] LABS: Lipase 43 U/L (12-53)
[2023-07-05] MEDS: levoFLOXacin 500MG 100 ML IV ONE (21:30)
[2023-07-05] MEDS: metroNIDAZOLE 500MG/100ML 100 ML IV ONE (21:30)
[2023-07-05] MEDS ORDERED: MORPHINE SULFATE INJ 2 MG/ml SYRG IV PRN ×2 (23:00)
[2023-07-05] MEDS ORDERED: ACETAMINOPHEN 325 MG TAB PO PRN (23:00)
[2023-07-05] MEDS ORDERED: ONDANSETRON HCL 4 MG/2 ML VIAL IV PRN (23:00)
[2023-07-05] MEDS ORDERED: NITROGLYCERIN 0.4 MG SL TAB SL PRN (23:00)
[2023-07-05] MEDS ORDERED: DEXTROSE (50%) 50ML SYRG IV PRN (23:00)
[2023-07-06] MEDS: ONDANSETRON HCL 4 MG/2 ML VIAL IM ONE (04:59)
[2023-07-06] MEDS: MORPHINE SULFATE 4 MG/ML SYR/VIAL IM ONE (05:00)
[2023-07-06] MEDS: PIPERACILLIN-TAZOB 3.375GM 100 ML IV SCH (06:57)
[2023-07-06] MEDS: ACCU-CHEK COMFORT CURVE STRIP VI SCH (06:58)
[2023-07-06] MEDS: InsuLIN REG 1unit/0.01ml Soln (100units/ml) SC SCH (07:00)
[2023-07-06 07:16] LABS: Basophils # (auto) 0 10 ^3/uL (0-0.2); Basophils % (auto) 0.2 % (0.0-2.0); Eosinophils # (auto) 0 10 ^3/uL (0-0.8); Hemoglobin 14.7 g/dL (13.5-17.5); Lymphocytes # (auto) 1.1 10 ^3/uL (0.4-5.4); Lymphocytes % (auto) 6.8 % (10.0-50.0); Mean Corpuscular Hemoglobin 22.6 pg (28.0-32.0); Mean Corpuscular Hgb Conc. 31.2 g/dL (32.0-36.0); Mean Corpuscular Volume 72.5 fL (80.0-100.0); Monocytes # (auto) 1.5 10 ^3/uL (0-1.3); Monocytes % (auto) 9.3 % (0.0-12.0); Neutrophils # (auto) 13.9 10 ^3/uL (1.6-8.6); Neutrophils % (auto) 83.7 % (37.0-80.0); Nucleated Red Blood Cells % 0.1 %; Red Blood Cells 6.49 10^6/uL (4.5-5.90); Red Cell Distribution Width 18.9 % (11.8-14.3); White Blood Cell 16.6 10^3/uL (4.4-10.8)
[2023-07-06 07:26] LABS: Anion Gap 8 (5-15); Carbon Dioxide 25 mmol/L (20-30); Chloride 101 mmol/L (98-107); Potassium 4.2 mmol/L (3.5-5.1); Sodium 134 mmol/L (136-145)
[2023-07-06 07:27] LABS: Calcium 9.7 mg/dL (8.5-10.1)
[2023-07-06 07:32] LABS: BUN/Creatinine Ratio 14.3 (10.0-20.0); Blood Urea Nitrogen 14 mg/dL (9-23); Glucose 146 mg/dL (74-106)
[2023-07-06 08:00] VITALS: BP 131/84; PULSE 100; RESP 19; TEMP 98.6; O2SAT 93
[2023-07-06 09:00] VITALS: BP 131/84; PULSE 100; RESP 19; TEMP 98.6; O2SAT 93
[2023-07-06] MEDS: SODIUM CHLORIDE 0.9% 1,000 ML IV SCH (09:00)
[2023-07-06 12:41] VITALS: BP 129/79; PULSE 84; RESP 19; TEMP 98.2; O2SAT 95
[2023-07-06] MEDS ORDERED: PIPERACILLIN-TAZOB 3.375GM 100 ML IV SCH (14:00)
[2023-07-06 17:00] VITALS: BP 118/71; PULSE 69; RESP 20; TEMP 98.9; O2SAT 94
[2023-07-06 20:00] VITALS: RESP 18
[2023-07-06 21:00] VITALS: BP 114/64; PULSE 65; RESP 21; TEMP 99; O2SAT 95
[2023-07-06] MEDS: PARoxetine 20 MG TAB PO SCH (22:05)
[2023-07-07] VITALS (7 sets, daily range): BP systolic 17–141; BP diastolic 41–94; PULSE 61–90; RESP 16–20; TEMP 97.3–99.5; O2SAT 93–100
[2023-07-07 06:59] LABS: Chloride 102 mmol/L (98-107); Potassium 4.2 mmol/L (3.5-5.1); Sodium 133 mmol/L (136-145)
[2023-07-07 07:00] LABS: Anion Gap 7 (5-15); Carbon Dioxide 24 mmol/L (20-30)
[2023-07-07 07:05] LABS: Glucose 131 mg/dL (74-106)
[2023-07-07 07:06] LABS: BUN/Creatinine Ratio 13.3 (10.0-20.0); Blood Urea Nitrogen 12 mg/dL (9-23)
[2023-07-07 07:08] LABS: Basophils # (auto) 0 10 ^3/uL (0-0.2); Basophils % (auto) 0.2 % (0.0-2.0); Lymphocytes # (auto) 0.8 10 ^3/uL (0.4-5.4); Monocytes # (auto) 0.8 10 ^3/uL (0-1.3); Neutrophils # (auto) 9.3 10 ^3/uL (1.6-8.6); Neutrophils % (auto) 85.2 % (37.0-80.0); Nucleated Red Blood Cells % 0.1 %; White Blood Cell 10.9 10^3/uL (4.4-10.8)
[2023-07-07 07:14] LABS: Eosinophils # (auto) 0 10 ^3/uL (0-0.8); Eosinophils % (auto) 0.4 % (0.0-7.0); Hematocrit 42.2 % (41.0-53.0); Hemoglobin 13.3 g/dL (13.5-17.5); Lymphocytes % (auto) 7.2 % (10.0-50.0); Mean Corpuscular Hemoglobin 22.9 pg (28.0-32.0); Mean Corpuscular Hgb Conc. 31.6 g/dL (32.0-36.0); Mean Corpuscular Volume 72.4 fL (80.0-100.0); Red Blood Cells 5.83 10^6/uL (4.5-5.90); Red Cell Distribution Width 18.3 % (11.8-14.3)
[2023-07-07] MEDS: GOLYTELY 4L KIT PO ONE (18:34)
[2023-07-08 05:00] VITALS: BP 126/78; PULSE 65; RESP 18; TEMP 97.7; O2SAT 95
[2023-07-08 05:56] LABS: Basophils # (auto) 0 10 ^3/uL (0-0.2); Basophils % (auto) 0.4 % (0.0-2.0); Eosinophils # (auto) 0 10 ^3/uL (0-0.8); Eosinophils % (auto) 0.7 % (0.0-7.0); Hemoglobin 13.6 g/dL (13.5-17.5); Lymphocytes # (auto) 0.7 10 ^3/uL (0.4-5.4); Monocytes # (auto) 0.6 10 ^3/uL (0-1.3); Neutrophils # (auto) 4.7 10 ^3/uL (1.6-8.6); Nucleated Red Blood Cells % 0.1 %; White Blood Cell 6.1 10^3/uL (4.4-10.8)
[2023-07-08 05:57] LABS: Hematocrit 43.8 % (41.0-53.0); Lymphocytes % (auto) 12.1 % (10.0-50.0); Mean Corpuscular Hemoglobin 22.6 pg (28.0-32.0); Mean Corpuscular Volume 73.1 fL (80.0-100.0); Monocytes % (auto) 9.1 % (0.0-12.0); Neutrophils % (auto) 77.7 % (37.0-80.0); Red Cell Distribution Width 18.2 % (11.8-14.3)
[2023-07-08 06:04] LABS: Anion Gap 7 (5-15); Carbon Dioxide 26 mmol/L (20-30); Chloride 102 mmol/L (98-107); Potassium 4.3 mmol/L (3.5-5.1); Sodium 135 mmol/L (136-145)
[2023-07-08 06:06] LABS: Calcium 9.3 mg/dL (8.5-10.1)
[2023-07-08 06:10] LABS: BUN/Creatinine Ratio 10.2 (10.0-20.0); Blood Urea Nitrogen 9 mg/dL (9-23); Glucose 127 mg/dL (74-106)
[2023-07-08 09:00] VITALS: BP 115/76; PULSE 60; RESP 19; TEMP 98; O2SAT 97
[2023-07-08 16:06] VITALS: TEMP 36.7
== END 2023-07-08 16:51 | disposition home or self-care (01) | DRG 390 ==
LOC: ER 17:08 → OVERFLOW 23:03 → WEST WING 07-06 05:18
PROVIDERS: ADMIT Nurse Practitioner Family; ATTEND Internal Medicine
DX: K56.609 Unspecified intestinal obstruction, unspecified as to partial versus complete obstruction (principal); K59.00 Constipation, unspecified; E11.9 Type 2 diabetes mellitus without complications; I10 Essential (primary) hypertension; E78.5 Hyperlipidemia, unspecified; E66.01 Morbid (severe) obesity due to excess calories; D72.829 Elevated white blood cell count, unspecified; N40.0 Benign prostatic hyperplasia without lower urinary tract symptoms; K62.89 Other specified diseases of anus and rectum; Z79.82 Long term (current) use of aspirin; Z79.899 Other long term (current) drug therapy; Z83.3 Family history of diabetes mellitus; Z85.51 Personal history of malignant neoplasm of bladder; Z68.38 Body mass index [BMI] 38.0-38.9, adult; C67.9 Malignant neoplasm of bladder, unspecified
CPT/HCPCS: 36415; 74176; 80048; 82962; 83605; 83690; 85025; G0378; J1815; J2543

== ENCOUNTER → 2023-12-13 | Day surgery (SDC) | payer OTHER, MEDICARE ==
[~2023-12-13] VITALS: Ht 170.2 cm; Wt 115.2 kg
[~2023-12-13] MED LIST changes: +ACCU-CHEK COMFORT CURVE STRIP VI ONE; -ASPI81CH59 PO; +DexAMETHasone SOD PHOS 10MG/1ML VIAL INJ ONE; +GLYCOPYRROLATE 0.2 MG/ML 1ML VIAL ONE; +HYDROmorphone HCL 2 MG/ML VL/or syr IV PRN; +KETOROLAC TROMETH 30 MG/ML 1ML VIAL ONE; +LIDOCAINE 2% (LOCAL ANESTH.) PF 5ml SDV ONE; +LISI40TA16 PO; +MEPERIDINE HCL (50 MG/ML) 1 ML VIAL ONE; +MIDAZOLAM HCL 2MG/2ML 2ml VIAL (1mg/ml) ONE; -OMEP20TA PO; +ONDANSETRON HCL 4 MG/2 ML VIAL IV ONE; +PROPOFOL 10 MG/ML 20 ML IV ONE; +ROCURONIUM 10MG/ML 10ML VIAL IV ONE; +SUGAMMADEX 200mg/2ml Vial (100MG/ML) IV ONE; +fentaNYL CITRATE 100 MCG/2 ML VL ONE; +levoFLOXacin 500MG 100 ML IV ONE; +mitoMYcin 40 MG in STERILE WATER 60 ML IS ONE
[2023-12-13 12:57] VITALS: PULSE 106; RESP 17; TEMP 98.5; O2SAT 95
[2023-12-13 13:42] VITALS: BP 115/43; PULSE 81; RESP 11; O2SAT 93
== END | disposition home or self-care (01) ==
LOC: SUR 06:58
PROVIDERS: ATTEND Urology
DX: C67.5 Malignant neoplasm of bladder neck (principal); I10 Essential (primary) hypertension; E78.5 Hyperlipidemia, unspecified; E03.9 Hypothyroidism, unspecified; Z98.890 Other specified postprocedural states; E11.9 Type 2 diabetes mellitus without complications; G47.33 Obstructive sleep apnea (adult) (pediatric); Z79.82 Long term (current) use of aspirin; Z79.84 Long term (current) use of oral hypoglycemic drugs; Z79.890 Hormone replacement therapy
CPT/HCPCS: 51720; 52500; 82962; 88307; 88342; J1100; J1885; J1956; J2003; J2175; J2250; J2704; J3010; J9280